=== PATIENT | male | born 1960 | race Two or more races ===

== ENCOUNTER 2018-04-02 17:54 | Emergency (ER) | payer OTHER ==
[~2018-04-02] VITALS: Ht 170.2 cm; Wt 57.6 kg
--- NOTE | 2018-04-02 18:12 | NUR ---
PT TO ROOM FROM LOBBY
--- NOTE | 2018-04-02 18:22 | NUR ---
PT TO IMAGING
--- NOTE | 2018-04-02 18:28 | NUR ---
58 Y/O MALE PRESENTS TO ED WITH C/O BONE PAIN. PER "HE'S BEEN SICK WITH FOR 3 WEEKS. FIRST IT WAS THE FLU. I THOUGHT THE MEDICINE FROM THE PHARMACY WOULD HELP, BUT IT HASN'T. MOSTLY HIS JOINTS HURT. THE COUGHING IS GETTING BETTER. JUST THE BONES. IT HURTS HIM SO MUCH." PT PLACED ON CONTPULSE OX,NIBP. NO C/O N/V/D, TRAUMA, CP, SOB.
--- NOTE | 2018-04-02 18:31 | NUR ---
PT REFUSES BLANKET AT THIS TIME.
[2018-04-02 18:56] LABS: BASOPHILS # (AUTO) 0.07 x10^3/uL (0-0.1); BASOPHILS % (AUTO) 1 % (0-1); EOSINOPHILS # (AUTO) 1.17 x10^3/uL (0-0.4); EOSINOPHILS % (AUTO) 12 % (1-7); LYMPHOCYTES # (AUTO) 2.34 x10^3/uL (1-3.4); LYMPHOCYTES % (AUTO) 24 % (22-44); MD NO; MEAN CORPUSCULAR HEMOGLOBIN 32.7 pg (27.5-34.5); MEAN CORPUSCULAR HGB CONC 34.3 g/dL (33.2-36.2); MEAN CORPUSCULAR VOLUME 95.3 fL (81-97); MEAN PLATELET VOLUME 7.4 fL (7.4-10.4); MONOCYTES # (AUTO) 0.48 x10^3/uL (0.2-0.8); MONOCYTES % (AUTO) 5 % (2-9); NEUTROPHILS # (AUTO) 5.56 x10^3/uL (1.8-6.8); NEUTROPHILS % (AUTO) 58 % (42-75); PLATELET COUNT 262 x10^3/uL (130-400); RED BLOOD COUNT 3.69 x10^6/uL (4.38-5.82)
--- NOTE | 2018-04-02 18:57 | NUR ---
BEDSIDE REPORT TO NAYA MEJIA. AWAITING LAB RESULTS.
[2018-04-02 19:09] LABS: ALANINE AMINOTRANSFERASE 20 U/L (12-78); ALBUMIN 3.2 g/dL (3.4-5.0); ANION GAP 5 mmol/L (5-15); CALCIUM 8.7 mg/dL (8.5-10.1); CHLORIDE 104 mmol/L (98-107)
[2018-04-02 19:12] LABS: ALKALINE PHOSPHATASE 109 U/L (45-117); BILIRUBIN,TOTAL 0.3 mg/dL (0.2-1.0); TOTAL PROTEIN 7.2 g/dL (6.4-8.2)
[2018-04-02 20:00] VITALS: BP 139/80
--- NOTE | 2018-04-02 20:01 | NUR ---
PT RESTING ON GURNEY, PT STATED "BODY ACHES EVERYWHERE", FAMILY AT BEDSIDE, CALL LIGHT WITHIN REACH, CHART UP FOR RECHECK.
== END 2018-04-02 20:30 | disposition home or self-care (01) ==
LOC: ED 20:24
DX: B34.9 Viral infection, unspecified (principal); M19.90 Unspecified osteoarthritis, unspecified site; F17.200 Nicotine dependence, unspecified, uncomplicated
CPT/HCPCS: 36415; 71046; 80053; 85025; 93005; 99284

== ENCOUNTER 2018-08-24 12:46 | Emergency (ER) | payer OTHER ==
[~2018-08-24] VITALS: Ht 170.2 cm; Wt 58.1 kg
[2018-08-24 13:10] VITALS: BP 136/77
--- NOTE | 2018-08-24 13:24 | NUR ---
NECK, BILATERAL UPPER EXTREMITIES DOWN TO HANDS AND BILATERAL FOOT PAIN SINCE SUZETTE
[2018-08-24] MEDS ORDERED: KETOROLAC 30 MG/1 ML IM ONE (13:30)
[2018-08-24] MEDS ORDERED: KETOROLAC 30 MG/1 ML ONE (13:35)
[2018-08-24 14:00] LABS: BASOPHILS # (AUTO) 0.03 x10^3/uL (0-0.1); BASOPHILS % (AUTO) 0 % (0-1); EOSINOPHILS # (AUTO) 0.28 x10^3/uL (0-0.4); EOSINOPHILS % (AUTO) 3 % (1-7); LYMPHOCYTES # (AUTO) 1.62 x10^3/uL (1-3.4); LYMPHOCYTES % (AUTO) 17 % (22-44); MD NO; MEAN CORPUSCULAR HEMOGLOBIN 30.8 pg (27.5-34.5); MEAN CORPUSCULAR HGB CONC 32.5 g/dL (33.2-36.2); MEAN CORPUSCULAR VOLUME 94.6 fL (81-97); MONOCYTES # (AUTO) 0.41 x10^3/uL (0.2-0.8); MONOCYTES % (AUTO) 4 % (2-9); NEUTROPHILS # (AUTO) 7.33 x10^3/uL (1.8-6.8); NEUTROPHILS % (AUTO) 76 % (42-75); PLATELET COUNT 292 x10^3/uL (130-400); RED BLOOD COUNT 4.38 x10^6/uL (4.38-5.82); RED CELL DISTRIBUTION WIDTH 14.9 % (9.4-14.8)
[2018-08-24 14:09] LABS: ALBUMIN 3.8 g/dL (3.4-5.0); ANION GAP 7 mmol/L (5-15); CALCIUM 9.4 mg/dL (8.5-10.1); CHLORIDE 103 mmol/L (98-107); CREATININE 0.97 mg/dL (0.7-1.3)
[2018-08-24 14:11] LABS: CREATINE KINASE, TOTAL 70 U/L (39-308)
--- NOTE | 2018-08-24 14:49 | NUR ---
PT STATES PAIN IMPROVED FROM 8/10 TO 4/10 AFTER BEING MEDICATED FOR SAME. PT AMBULATED TO DISCHARGE WINDOW,STEADY GAIT
== END 2018-08-24 14:51 | disposition home or self-care (01) ==
LOC: ED 14:45
DX: G89.29 Other chronic pain (principal); M25.561 Pain in right knee; M25.562 Pain in left knee; M79.622 Pain in left upper arm; M79.621 Pain in right upper arm; M25.521 Pain in right elbow; M25.522 Pain in left elbow; F17.200 Nicotine dependence, unspecified, uncomplicated
CPT/HCPCS: 36415; 80048; 82040; 82550; 85025; 96372; 99283; J1885